=== PATIENT | female | born 1950 | race Caucasian/White ===

== ENCOUNTER 2018-12-10 19:59 | Emergency (ER) | payer MEDICARE ==
--- NOTE | 2018-12-10 20:08 | UC ---
UC General HPI - HPI Summary HPI Summary: 68 yo female c/o Urinary pain and pressures with difficulty with urination and back pain. progressive worse last couple days. Was going to wait to call pcp, but sx worse. No fever /c hills. No sob / cp / palpitations. No mona hematuria. + R back and flank pain. No rash. Sx improved with nsaid (careful d/t hx g. bypass). - History of Current Complaint Stated Complaint: URINARY COMPLAINT Time Seen by Provider: 12/10/18 20:05 Hx Obtained From: Patient - Allergy/Home Medications Allergies/Adverse Reactions: Allergies Allergy/AdvReac Type Severity Reaction Status Date / Time lisinopril Allergy Unknown Verified 12/10/18 20:05 Reaction Details nitrofurantoin Allergy Unknown Verified 12/10/18 20:05 Reaction Details Home Medications: Home Medications Cyanocobalamin (Vitamin B-12) [Vitamin B-12] 100 mg PO WEEKLY 12/10/18 [History Confirmed 12/10/18] FLUoxetine CAP* [Prozac CAP*] 10 mg PO DAILY 12/10/18 [History Confirmed ] Ferrous Sulfate TAB* 325 mg PO DAILY 12/10/18 [History Confirmed 12/10/18] PMH/Surg Hx/FS Hx/Imm Hx Previously Healthy: Yes - however, does have sign pmh as below - Surgical History Surgical History: Yes Surgery Procedure, Year, and Place: appendectomy,hysterectomy, cholecystectomy, bilateral knee replacement - Family History Known Family History: Negative: Cardiac Disease - Social History Occupation: Retired Alcohol Use: Rare Substance Use Type: None, Other Smoking Status (MU): Former Smoker Amount Used/How Often: 1-2 cigs/day When Did the Patient Quit Smoking/Using Tobacco: 12/2013 - Immunization History Most Recent Influenza Vaccination: 2012 Most Recent Tetanus Shot: 2012 Most Recent Pneumonia Vaccination: 2011 Review of Systems All Other Systems Reviewed And Are Negative: Yes Constitutional: Positive: Other - see hpi Skin: Positive: Other Eyes: Positive: Other - see hpi ENT: Positive: Other - see hpi Respiratory: Positive: Negative Cardiovascular: Positive: Negative Gastrointestinal: Positive: Other - see hpi Genitourinary: Positive: Other - see hpi Motor: Positive: Other - see hpi Neurovascular: Positive: Other - see hpi Musculoskeletal: Positive: Other: Neurological: Positive: Other - see hpi Psychological: Positive: Other - see hpi Is Patient Immunocompromised?: No Physical Exam Triage Information Reviewed: Yes Appearance: Well-Nourished - sitting up, conversing easily Vital Signs Reviewed: Yes Eye Exam: Normal ENT Exam: Normal - mmm Neck exam: Normal Neck: Positive: Supple, Nontender Respiratory Exam: Normal Respiratory: Positive: Chest non-tender, Lungs clear, Normal breath sounds, No respiratory distress, No accessory muscle use Cardiovascular Exam: Normal Cardiovascular: Positive: RRR, No Murmur, Pulses Normal, Brisk Capillary Refill Abdominal Exam: Other - + bs, soft, not-dist Subj R cvat, and R flank discomfort. + discomfort over bladder RLQ, guilherme with lying back. Multiple scars. ? hernia, but not incarcerated by general exam No rash. Musculoskeletal Exam: Normal - gait steady Neurological Exam: Normal - grossly nonfocal, but does have some chronic dizziness Psychological Exam: Normal - conversing easily and appropriately Course/Dx - Course Course Of Treatment: hemoglobin a1c - 5.9% bp 160/94 urine dip noted, reivewed with pt. cx sent. CT abd /pelv noncont reviewed, report reviewed with pt. Interestingly, L ureteral calc noted, discomfort on R side. Also - appdx noted as normal, but she has had an appendectomy in the past. She will f/u with PCP has upcoming appt in 2 weeks, going out of town in the next few days. Referral to urology placed today. Offered to go to the ED for further evaluation and treatment, guilherme in light of R abd pain in the setting of prior gastric bypass, nonspec ct non-cont findings, and prior surgeries. She carefully considered this but declines. Will go to the ED for any worse or new problems. Will start po abx, possible uti, in the setting of kidney stones. Rx clotrimazole re possible vag yeast issue, guilherme in light of abx. Encourage yogurt / probiotic. Questions as posed answered to the best of my ability. - Diagnoses Provider Diagnosis: Renal calculi, Hematuria, UTI (urinary tract infection), Abdominal pain Discharge - Sign-Out/Discharge Documenting (check all that apply): Patient Departure All imaging exams completed and their final reports reviewed: Yes - Discharge Plan Condition: Stable Disposition: HOME Prescriptions: ceFUROXime TAB(*) [Ceftin TAB 250 MG(*)] 500 mg PO BID 10 Days #40 tab Clotrimazole 1% VAGINAL CREAM* [Gyne-Lotrimin 1% VAGINAL CREAM*] 1 applic VAGINAL DAILY 7 Days #1 tube Patient Education Materials: Kidney Stones (ED), Urinary Tract Infection in Women (ED), Hematuria (ED), Abdominal Pain (ED) Referrals: Alexandrea Logan MD [Primary Care Provider] - Dennis Deutsch MD [Medical Doctor] - Additional Instructions: Drink plenty of fluids. Follow up with your primary care physician as scheduled. Follow up with Urology in next couple weeks, if possible. Please go to the Emergency Department for any problems, worse or new symptoms. Urine culture in the lab. - Billing Disposition and Condition Condition: STABLE Disposition: Home
[2018-12-10 20:14] VITALS: BP 160/94
[2018-12-10] MEDS ORDERED: Cephalexin CAP* 500 MG PO ONE (22:50)
--- NOTE | 2018-12-12 14:47 | UC ---
- Progress Note Progress Note: please notify pt no UTI may stop keflex Course/Dx - Diagnoses Provider Diagnoses: Renal calculi, Hematuria, UTI (urinary tract infection), Abdominal pain Discharge - Sign-Out/Discharge Documenting (check all that apply): Post-Discharge Follow Up All imaging exams completed and their final reports reviewed: Yes - Discharge Plan Condition: Stable Disposition: HOME Prescriptions: ceFUROXime TAB(*) [Ceftin TAB 250 MG(*)] 500 mg PO BID 10 Days #40 tab Clotrimazole 1% VAGINAL CREAM* [Gyne-Lotrimin 1% VAGINAL CREAM*] 1 applic VAGINAL DAILY 7 Days #1 tube Patient Education Materials: Kidney Stones (ED), Urinary Tract Infection in Women (ED), Hematuria (ED), Abdominal Pain (ED) Referrals: Alexandrea Logan MD [Primary Care Provider] - Dennis Deutsch MD [Medical Doctor] - Additional Instructions: Drink plenty of fluids. Follow up with your primary care physician as scheduled. Follow up with Urology in next couple weeks, if possible. Please go to the Emergency Department for any problems, worse or new symptoms. Urine culture in the lab. - Billing Disposition and Condition Condition: STABLE Disposition: Home
== END 2018-12-10 23:00 | disposition home or self-care (01) ==
LOC: UCEAST 19:59
DX: N20.2 Calculus of kidney with calculus of ureter (principal); N21.0 Calculus in bladder; K57.30 Diverticulosis of large intestine without perforation or abscess without bleeding; N39.0 Urinary tract infection, site not specified; R10.31 Right lower quadrant pain; Z90.49 Acquired absence of other specified parts of digestive tract; Z90.710 Acquired absence of both cervix and uterus; Z98.84 Bariatric surgery status; Z96.653 Presence of artificial knee joint, bilateral; Z88.1 Allergy status to other antibiotic agents; Z88.0 Allergy status to penicillin; Z87.891 Personal history of nicotine dependence
CPT/HCPCS: 74176; 81003; 87086; 99212; A9270-GY; G0463